=== PATIENT | male | born 1980 | race Caucasian/White ===

== ENCOUNTER 2018-05-28 11:46 | Emergency (ER) | payer OTHER ==
[2018-05-28 12:10] VITALS: BP 113/74; PULSE 64; TEMP 98.9; BMI 22.6
[2018-05-28] MEDS ORDERED: ACETAMINOPHEN 325 MG TABLET (FP) PO ONE (12:21)
[2018-05-28] MEDS ORDERED: ACETAMINOPHEN 325 MG TABLET (FP) ONE (12:23)
--- NOTE | 2018-05-28 12:30 | PDOC ---
History of Present Illness - General Chief Complaint: Head/Neck problem Stated Complaint: THYROID ISSUES/PAIN BACK OF NECK Time Seen by Provider: 05/28/18 12:13 History Source: Patient Exam Limitations: No Limitations - History of Present Illness Initial Comments: 05/28/18 12:25 38 yr male history of goiter diagnosed last year, pt states he has seen in the past, had apt today but could not go because he has no insurance. pt came to ER today for c/o "lump in throat" , unintentional weight loss the past 3 months. Pt also with loose stools. denies night sweats, no vomiting no palpitations. Past History - Past Medical History Allergies/Adverse Reactions: Allergies Allergy/AdvReac Type Severity Reaction Status Date / Time No Known Allergies Allergy Verified 05/28/18 12:05 Home Medications: Ambulatory Orders NK [No Known Home Medication] 05/28/18 COPD: No - Immunization History Immunization Up to Date: Yes - Suicide/Smoking/Psychosocial Hx Smoking History: Never smoked Have you smoked in the past 12 months: No Number of Cigarettes Smoked Daily: 0 Cigars Per Day: 0 Hx Alcohol Use: No Drug/Substance Use Hx: Yes (hooka) Substance Use Type: None Review of Systems - Review of Systems Able to Perform ROS?: Yes Is the patient limited Bulgarian proficient: No Constitutional: No: Symptoms Reported HEENTM: Yes: Symptoms Reported *Physical Exam - Vital Signs Last Vital Signs Temp Pulse Resp BP Pulse Ox 98.9 F 64 16 113/74 99 05/28/18 12:06 05/28/18 12:06 05/28/18 12:06 05/28/18 12:06 05/28/18 12:06 - Physical Exam General Appearance: Yes: Nourished, Appropriately Dressed HEENT: positive: EOMI, KAT Neck: positive: Supple. negative: Lymphadenopathy (R), Lymphadenopathy (L) Respiratory/Chest: positive: Lungs Clear, Normal Breath Sounds Cardiovascular: positive: Regular Rhythm, Regular Rate Gastrointestinal/Abdominal: positive: Normal Bowel Sounds, Soft Musculoskeletal: positive: Normal Inspection Extremity: positive: Normal Capillary Refill, Normal Inspection, Normal Range of Motion Integumentary: positive: Normal Color, Dry, Warm Neurologic: positive: Fully Oriented, Alert, Normal Mood/Affect, Normal Response , Motor Strength 5/5 ED Treatment Course - LABORATORY CBC & Chemistry Diagram: 05/28/18 12:22 05/28/18 12:22 - RADIOLOGY Radiology Studies Ordered: Category Date Time Status NECK SOFT TISSUE [RAD] Stat Radiology 05/28/18 12:21 Ordered *DC/Admit/Observation/Transfer Diagnosis at time of Disposition: Neck discomfort - Discharge Dispostion Disposition: HOME Condition at time of disposition: Good - Referrals Referrals: Daiana Conley [Primary Care Provider] - Simba Bradford MD [Staff Physician] - - Patient Instructions Additional Instructions: please follow with and 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
[2018-05-28 12:36] LABS: HEMOGLOBIN 15.8 GM/dL (11.7-16.9); MCH 29.5 pg (25.7-33.7); MCHC 33.6 g/dl (32.0-35.9); MEAN CELL VOLUME 87.9 fl (80-96); MEAN PLT VOLUME 7.6 fl (7.5-11.1); PLATELET COUNT 280 K/MM3 (134-434); RBC 5.35 M/mm3 (4.00-5.60); RDW 12.9 % (11.9-15.9)
[2018-05-28 13:04] LABS: ALBUMIN 4.2 g/dl (3.4-5.0); ANION GAP 9 MMOL/L (8-16); BILIRUBIN,TOTAL 2.1 mg/dL (0.2-1.0); BLOOD UREA NITROGEN 8 mg/dL (7-18); CALCIUM 9.4 mg/dL (8.5-10.1); CHLORIDE 106 mmol/L (98-107); CO2 28 mmol/L (21-32); CREATININE 0.9 mg/dL (0.55-1.3); GLUCOSE,RANDOM 103 mg/dL (74-106); POTASSIUM 4.3 mmol/L (3.5-5.1); SGOT/AST 18 U/L (15-37); SGPT/ALT 24 U/L (13-61); SODIUM 143 mmol/L (136-145); TOT PROT 7.3 g/dl (6.4-8.2)
[2018-05-28 13:13] LABS: ALK PHOS 71 U/L (45-117)
== END 2018-05-28 13:56 | disposition home or self-care (01) ==
LOC: JERFT 11:46
DX: M54.2 Cervicalgia (principal)
CPT/HCPCS: 36415; 70360-TC-FY; 80053; 84439; 84443; 84481; 85027; 99281-25